=== PATIENT | female | born 2000 | race Caucasian/White ===

== ENCOUNTER 2022-12-14 22:38 | Day surgery (SDC) | payer OTHER ==
[2022-12-14 22:53] VITALS: BMI 33.7
[2022-12-14] MEDS ORDERED: Acetaminophen 325 MG TAB PO SCH (23:30)
== END 2022-12-15 00:05 | disposition home or self-care (01) ==
LOC: CSHLD/OP 22:38
PROVIDERS: ATTEND Obstetrics & Gynecology
DX: O47.03 False labor before 37 completed weeks of gestation, third trimester (principal); O99.013 Anemia complicating pregnancy, third trimester; D64.9 Anemia, unspecified; Z3A.33 33 weeks gestation of pregnancy
CPT/HCPCS: 99282